=== PATIENT | female | born 1955 | race Caucasian/White ===

== ENCOUNTER 2017-10-31 11:37 | Emergency (ER) | payer OTHER ==
[~2017-10-31] VITALS: Ht 165.1 cm; Wt 59.0 kg
[2017-10-31 12:13] LABS: HEMATOCRIT 37.4 % (36.0-46.0); MCH 28.4 PG (29.0-34.0); MCHC 33.4 G/DL (30.0-36.0); MEAN PLAT.VOLUME 8.9 uM^3 (9.5-12.4); PLATELET COUNT 471 K/uL (156-360); RBC DIS.WIDTH-CV 13.2 % (11.8-14.6); RBC DIS.WIDTH-SD 41.3 % (39-53); WHITE BLOOD COUNT 9.5 K/uL (4.1-10.2)
[2017-10-31 12:21] LABS: CHLORIDE 100 mEq/L (99-109); POTASSIUM 4.1 mEq/L (3.7-5.4); SODIUM 135 mEq/L (136-147)
[2017-10-31 12:22] LABS: GLUCOSE 143 mg/dL (70-99)
[2017-10-31 12:24] LABS: ANION GAP 9 MEQ/L (2-14)
[2017-10-31 12:26] LABS: GFR ESTIMATE (CALCULATED) > 59 mL/min/
[2017-10-31 12:27] LABS: UREA NITROGEN (BUN) 11 mg/dL (9-23)
[2017-10-31 13:43] LABS: INTER. NORMALIZED RATIO 1.1; PROTHROMBIN TIME 12.8 SEC (10.2-12.9)
[2017-10-31 13:46] LABS: PTT 29.3 SEC (25-37)
[2017-10-31 13:50] LABS: ADD MIUA? YES; BILIRUBIN NEGATIVE; BLOOD SMALL; COLOR YELLOW ((YELLOW)); GLUCOSE (STRIP) NEGATIVE; KETONES NEGATIVE; LEUKOCYTES NEGATIVE; NITRITE NEGATIVE; PROTEIN (STRIP) NEGATIVE; SPECIFIC GRAVITY 1.013 (1.000-1.030); UROBILINOGEN 0.2 MG/DL (0.2-1.0)
[2017-10-31 13:56] LABS: BACTERIA NONE SEEN /HPF; EPITHELIAL CELLS 1+ /HPF; MUCUS NONE SEEN /LPF; RED BLOOD CELLS 0-5 /HPF (0-5); WHITE BLOOD CELLS 0-5 /HPF (0-5)
[2017-10-31 14:01] LABS: TROP-I INTERPRETATION NEGATIVE; TROPONIN-I < 0.01 ng/mL (0.0-0.30)
[2017-10-31] MEDS ORDERED: ZOFRAN ODT4 MG PO (15:48)
[2017-10-31] MEDS ORDERED: LORTAB 5-325 M1 EACH PO (15:48)
[2017-10-31 15:59] VITALS: BP 127/70
== END 2017-10-31 16:11 | disposition home or self-care (01) ==
LOC: EME 11:37
PROVIDERS: Physician Assistant Medical
DX: R07.89 Other chest pain (principal); R06.00 Dyspnea, unspecified; M54.9 Dorsalgia, unspecified; M79.1 Myalgia; F17.200 Nicotine dependence, unspecified, uncomplicated
CPT/HCPCS: 71020; 71275; 80048; 81003; 83735; 84484; 85027; 85610; 85730; 93005; 99281; 99285; J2270; J2405; J7030